=== PATIENT | female | born 1995 | race Two or more races ===

== ENCOUNTER 2022-03-18 18:43 | Emergency (ER) | payer OTHER ==
[~2022-03-18] VITALS: Ht 162.6 cm; Wt 70.3 kg
[2022-03-18 18:50] VITALS: BP 128/92
--- NOTE | 2022-03-18 19:00 | NUR ---
[age] BIBFather from home c/o facial numbness since yesterday morning, worst today.
[2022-03-18] MEDS ORDERED: PRED20TA PO (19:10)
--- NOTE | 2022-03-18 19:18 | NUR ---
Patient discharged to home in stable condition. RX Written and verbal after care instructions given. Patient verbalizes understanding of instruction. PT ambulatory with a steady gait
[2022-03-18] MEDS ORDERED: predniSONE 50 MG TABLET PO ONE (19:30)
== END 2022-03-18 19:05 | disposition home or self-care (01) ==
LOC: ER 18:51
DX: G51.0 Bell's palsy (principal); Z79.899 Other long term (current) drug therapy